=== PATIENT | female | born 1985 | race American Indian/Alaskan Native ===

== ENCOUNTER 2020-04-21 14:50 | Emergency (ER) | payer SELFPAY ==
[2020-04-21 15:15] VITALS: BP 134/84
--- NOTE | 2020-04-21 18:23 | Emergency Department Report ---
Chief Complaint: Headache Stated Complaint: LUMPS ON NECK HEAD PAINS Time Seen by Provider: 04/21/20 16:58 - HPI History of Present Illness: This is a 34-year-old female who presents to the ED complaining of to not on the back of her head behind her right ear that has been there for a few days but this morning she states that she was having some pain to the area causing her to have a headache. Patient states when she woke up the headache prevented her from going to work so she came in here to be evaluated. Patient denies any injury, trauma, fall, nausea vomiting, blurry vision, dizziness or lightheadedness. - ROS Review of Systems: As noted in HPI - Exam Vital Signs: Vital Signs 04/21/20 15:10 Temperature 98.1 F Pulse Rate 94 H Respiratory 18 Rate Blood Pressure 134/84 O2 Sat by Pulse 98 Oximetry Physical Exam: GENERAL: Alert and oriented x3, no apparent distress, Normal Gait, atraumatic. HEAD: Head is normocephalic and a-traumatic. EYE: PERRLA, EOMI, vision is intact bilaterally NECK: Supple. Non edematous, No carotid bruits. 2 posterior lymphadenopathy behind right ear, non tender to palpation. No C-spine tenderness NEUROLOGIC: The patient is cooperative with no focal neurologic deficits. SKIN: Warm and dry, No lesions, No ulceration or induration present. MSE screening note: Focused history and physical exam performed. Due to findings the following was ordered: ED Medical Decision Making - Medical Decision Making 34-year-old female presents with right posterior lymphadenopathy. Patient is in no acute distress. This was nontender masses. Discussed with patient to follow-up with primary care physician. Discussed ap plication of heat. Discussed pain medication for headache. Discussed with patient if any new symptoms or worsening symptoms return to ED immediately ED Disposition for MSE Clinical Impression: Lymph node enlargement Disposition: [id number] TO HOME OR SELFCARE Is pt being admited?: No Does the pt Need Aspirin: No Condition: Stable Instructions: Lymphadenopathy (ED), Adenitis (ED) Additional Instructions: Make sure to follow up with the primary care physician as discussed. Take all your medications as you've been prescribed. If you have any worsening symptoms or develop new symptoms please return to ED immediately. Prescriptions: Butalb/Acetaminophen/Caffeine [Fioricet 50-300-40 mg CAP] 1 cap PO Q8HR PRN #20 cap PRN Reason: Headache Referrals: PRIMARY CARE, [Primary Care Provider] - 3-5 Days [facility] [Outside] - 3-5 Days [facility] [Outside] - 3-5 Days [facility] [Outside] - 3-5 Days Forms: Accompanied Note, Work/School Release Form(ED) Time of Disposition: 18:40
== END 2020-04-21 18:50 | disposition home or self-care (01) ==
LOC: ED 14:50
DX: R59.9 Enlarged lymph nodes, unspecified (principal)
CPT/HCPCS: 99282